=== PATIENT | male | born 1980 | race African-American/Black ===

== ENCOUNTER 2017-08-13 16:04 | Emergency (ER) | payer BC ==
--- NOTE | 2017-08-13 16:18 | ER Document Report ---
ED General Pain - General Chief Complaint: Low Back Pain Stated Complaint: BACK PAIN Time Seen by Provider: 08/13/17 16:18 Mode of Arrival: Ambulatory Information source: Patient Notes: Patient is a 37-year-old male who presents to the ER today for low back pain that started approximately a month ago when they were moving from one house to another. Patient states that he did have pain during the moving process but that he just ignored it, he has no history of any back problems. 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 Patient admits that the back pain has been intermittent over the past month, "probably worse because of my job." He denies any numbness or tingling, loss of bladder or bowel function. He does state that is starting to get more painful to strain trying to have a bowel movement. TRAVEL OUTSIDE OF THE [place] IN LAST 30 DAYS: No - Related Data Allergies/Adverse Reactions: No Known Allergies Allergy (Verified 08/13/17 16:05) Past Medical History - General Information source: Patient - Social History Smoking Status: Unknown if Ever Smoked Family History: Reviewed & Not Pertinent - Immunizations Hx Diphtheria, Pertussis, Tetanus Vaccination: Yes - unknown Review of Systems - Review of Systems Constitutional: No symptoms reported EENT: No symptoms reported Cardiovascular: No symptoms reported Respiratory: No symptoms reported Gastrointestinal: No symptoms reported Genitourinary: No symptoms reported Male Genitourinary: No symptoms reported Musculoskeletal: See HPI Skin: No symptoms reported Hematologic/Lymphatic: No symptoms reported Neurological/Psychological: No symptoms reported Physical Exam - Notes Notes: PHYSICAL EXAMINATION: GENERAL: Well-appearing and in no acute distress. HEAD: Atraumatic, normocephalic. EYES: Pupils equal round and reactive to light, extraocular movements intact, sclera anicteric, conjunctiva are normal. ENT: ear canals without erythema or foreign body, TMs pearly etienne with good bony landmarks, nares patent, oropharynx clear without exudates. Moist mucous membranes. NECK: Normal range of motion, supple without lymphadenopathy LUNGS: CTAB and equal. No wheezes rales or rhonchi. HEART: Regular rate and rhythm without murmurs ABDOMEN: Soft, no tenderness. No guarding, no rebound BACK: Mild lumbar vertebral tenderness, normal ROM GI/: no CVA tenderness EXTREMITIES: Normal range of motion, no pitting edema. No cyanosis. NEUROLOGICAL: Cranial nerves grossly intact. Normal sensory/motor exams. PSYCH: Normal mood, normal affect. SKIN: Warm, Dry, normal turgor, no rashes or lesions noted Course - Re-evaluation Re-evalutation: 08/13/17 20:34 Lumbar x-ray negative for any acute pathology. Discharge - Discharge Clinical Impression: Low back pain Qualifiers: Chronicity: acute Back pain laterality: midline Sciatica presence: without sciatica Qualified Code(s): M54.5 - Low back pain Condition: Stable Disposition: HOME, SELF-CARE Additional Instructions: Return immediately for any new or worsening symptoms. Follow up with primary care provider, call tomorrow to make followup appointment. Prescriptions: Cyclobenzaprine HCl [Flexeril 10 mg Tablet] 10 mg PO TIDP PRN #15 tab PRN Reason: Ibuprofen [Motrin 800 mg Tablet] 800 mg PO Q8H PRN #30 tab PRN Reason:
[2017-08-13] MEDS ORDERED: IBUPROFEN 800 MG TABLET PO ONE (16:23)
[2017-08-13] MEDS ORDERED: CYCLOBENZAPRINE HCL 10 MG TABLET PO ONE (16:23)
--- NOTE | 2017-08-13 17:15 | RADIOLOGY REPORT (SQ) ---
EXAM DESCRIPTION: L SPINE WHOLE COMPLETED DATE/TIME: 08/13/2017 4:40 pm REASON FOR STUDY: low back pain after moving/lifting,w/ straining COMPARISON: None. NUMBER OF VIEWS: Five views including obliques. TECHNIQUE: AP, lateral, oblique, and sacral radiographic images acquired of the lumbar spine. LIMITATIONS: None. FINDINGS: MINERALIZATION: Normal. SEGMENTATION: Normal. No transitional anatomy. ALIGNMENT: Normal. VERTEBRAE: Maintained height. No fracture or worrisome bone lesion. DISCS: Mild disc space loss of height at L5-S1. No significant osteophytes or end plate irregularity . POSTERIOR ELEMENTS: Pedicles and facets are intact. No pars defect or posterior arch defects. HARDWARE: None in the spine. PARASPINAL SOFT TISSUES: Normal. PELVIS: Intact as visualized. No fractures or worrisome bone lesions. SI joints intact. OTHER: No other significant finding. IMPRESSION: Mild disc space loss of height at L5-S1. Otherwise unremarkable study TECHNICAL DOCUMENTATION: JOB ID: [id number] [email or web address]- All Rights Reserved Reading location - IP/workstation name: [email or web address]
== END 2017-08-13 17:54 | disposition home or self-care (01) ==
LOC: ER 16:04
DX: M54.5 Low back pain (principal)
CPT/HCPCS: 72110; 99283

== ENCOUNTER → 2018-10-27 | Outpatient (CLI) | payer SELFPAY ==
[2018-10-27 15:57] LABS: ALANINE AMINOTRANSFERASE 31 U/L (21-72); ALBUMIN 4.3 g/dL (3.5-5.0); ALKALINE PHOSPHATASE 82 U/L (38-126); ANION GAP 8 (5-19); ASPARTATE AMINO TRANSFERASE 18 U/L (17-59); BILIRUBIN,DIRECT 0.2 mg/dL (0.0-0.4); BILIRUBIN,TOTAL 0.5 mg/dL (0.2-1.3); BLOOD UREA NITROGEN 15 mg/dL (7-20); CALCIUM 9.7 mg/dL (8.4-10.2); CARBON DIOXIDE 30 mmol/L (22-30); CHLORIDE 104 mmol/L (98-107); GLUCOSE 108 mg/dL (75-110); POTASSIUM 4.4 mmol/L (3.6-5.0); SODIUM 141.8 mmol/L (137-145); TOTAL PROTEIN 7.2 g/dL (6.3-8.2)
--- NOTE | 2018-10-27 20:44 | EKG REPORT ---
SEVERITY:- BORDERLINE ECG - SINUS RHYTHM BORDERLINE T ABNORMALITIES, DIFFUSE LEADS : Confirmed by: Yuko Mccormack MD 27-Oct-2018 20:43:35
== END ==
LOC: OD 14:56
PROVIDERS: ATTEND Nurse Practitioner Family
DX: I10 Essential (primary) hypertension (principal); R00.1 Bradycardia, unspecified
CPT/HCPCS: 36415; 80053; 84443; 93005; 93010

== ENCOUNTER 2020-02-29 17:33 | Emergency (ER) | payer SELFPAY ==
[2020-02-29] MEDS ORDERED: CLONIDINE HCL 0.2 MG TABLET PO ONE (20:38)
--- NOTE | 2020-02-29 20:44 | ER Document Report ---
ED General - General Chief Complaint: Nausea Stated Complaint: NAUSEA Time Seen by Provider: 02/29/20 18:45 Primary Care Provider: AGUILA OLIVO NP [Primary Care Provider] - Follow up as needed Mode of Arrival: Ambulatory Information source: Patient Notes: 39-year-old -[place] male with longstanding history of hypertension but no other medical problems coming in today with pain in his chest and pain in his bilateral lower extremities. This has been going on for quite some time. He does not have any associated shortness of breath. He does not have any trauma. 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 TRAVEL OUTSIDE OF THE [place] IN LAST 30 DAYS: No - Related Data Allergies/Adverse Reactions: No Known Allergies Allergy (Verified 08/13/17 16:05) Past Medical History - Social History Smoking Status: Never Smoker Frequency of alcohol use: Occasional Drug Abuse: None Family History: Reviewed & Not Pertinent - Past Medical History Cardiac Medical History: Reports: Hx Hypertension Renal/ Medical History: Denies: Hx Peritoneal Dialysis - Immunizations Hx Diphtheria, Pertussis, Tetanus Vaccination: Yes - unknown Review of Systems - Review of Systems Notes: Constitutional: No fevers. No chills. EENT: No eye redness. No eye pain. No ear pain. No sore throat. Cardiovascular: +chest pain. No palpitations. Respiratory: No cough. No shortness of breath. No respiratory distress. Gastrointestinal: No abdominal pain. No nausea, vomiting, or diarrhea. Genitourinary: Atraumatic. No lesions. No pain. No discharge. Musculoskeletal: Atraumatic. No swelling. No deformities. Positive for pain and swelling to bilateral lower extremities Skin: No rash or lesions. Lymphatic: No swollen lymph nodes. Neurologic: No headache. No syncope. Psychiatric: No suicidal or homicidal ideation. Physical Exam - Vital signs Vitals: Temp Pulse Resp BP Pulse Ox 98.2 F 99 16 192/121 H 100 02/29/20 17:59 02/29/20 17:59 02/29/20 17:59 02/29/20 17:59 02/29/20 17:59 - Notes Notes: General: Well-developed, well-nourished. In no acute distress. Non-toxic appearing. Cardiac: Well-perfused. Regular rate and rhythm. No murmurs, rubs, or gallops. Pulmonary: No respiratory distress. No cyanosis. Bilateral lung fiels are clear to auscultation. Abdominal: Non-distended. Non-rigid. Bowels sounds are present in all four quadrants. No guarding or rebound. HEENT: Head is atraumatic. Conjunctivae not reddened. No tearing. PERRL. EOMI. Orbits atraumatic. No periorbital swelling or erythema. Oropharynx is without erythema, swelling, or exudates. Neck: Supple. No adenopathy. No meningismus. Dermatologic: Warm with good turgor. No rash. Atraumatic. Chest: Atraumatic. No chest wall tenderness to palpation. Musculoskeletal: Moves all extremities well. No range of motion deficits. no muscular or joint tenderness. No paraspinal muscle tenderness. no midline spinal tenderness or step-off. Bilateral calf tenderness to palpation. Anterior chest wall is tender to palpate. No rib crepitus. Genitourinary: Examination deferred Neurologic: No gross neurologic deficits. Psychiatric: Normal mood. Course - Re-evaluation Re-evalutation: 02/29/20 20:43 Patient has rather elevated blood pressure. He has been told that he has high blood pressure but still does not take any medicine for it. Given his chest pain, which does seem to be musculoskeletal, will do basic cardiac work-up. Also given the pain in his legs and swelling and no previous injury, will get a venous Doppler. 02/29/20 23:55 Patient came in with pain in the muscles of his legs and his chest. He has longstanding untreated hypertension. He was worked up from a cardiac perspecti ve. His work-up is negative. He does have a CPK of almost 900. Suspect this could be some mild rhabdomyolysis explaining the pain in his legs. He got 2 L of normal saline and he is down to about 700. He is able to drink fluid on his own. I feel comfortable discharging him home with close follow-up with Dr. Davis. He is encouraged to really drink copious amounts of water to flush his kidneys out. Start him on lisinopril for his unusually elevated blood pressure. He is encouraged to follow-up both for his blood pressure and his rhabdomyolysis. - Vital Signs Vital signs: Temp Pulse Resp BP Pulse Ox 98.2 F 99 16 188/120 H 100 02/29/20 17:59 02/29/20 17:59 02/29/20 17:59 02/29/20 19:35 02/29/20 17:59 - Laboratory Result Diagrams: 02/29/20 18:45 02/29/20 18:45 Laboratory results interpreted by me: 02/29/20 02/29/20 02/29/20 18:45 18:45 23:28 RBC 5.60 H RDW 14.5 H Creatinine 1.43 H Est GFR (MDRD) Non-Af 55 L Direct Bilirubin 0.5 H Alkaline Phosphatase 132 H Creatine Kinase 905 H 698 H Total Protein 8.4 H Discharge - Discharge Clinical Impression: Elevated blood pressure reading Rhabdomyolysis Qualifiers: Rhabdomyolysis type: non-traumatic Qualified Code(s): M62.82 - Rhabdomyolysis Condition: Good Disposition: HOME, SELF-CARE Instructions: Myalagia (Muscle Pain) ([facility]) Additional Instructions: You need to drink copious amounts of water to flush your kidneys out. We have started the process for you through with the IV fluids but she can continue the process by drinking water. You have been given the name of a physician to follow-up with to make sure that your blood work is improving. You have been given a prescription for lisinopril which is a free prescription at [facility] pharmacy which will help start managing your blood pressure. You can [facility] to follow with [facility] and they can manage your blood pressure issues. Dr. Davis's information is also available as a follow-up option. Prescriptions: Lisinopril [Prinivil] 20 mg PO DAILY #30 tablet Forms: Elevated Blood Pressure Referrals: SULEIMAN DAVIS DO [NO LOCAL MD] - Follow up tomorrow
--- NOTE | 2020-02-29 21:24 | RADIOLOGY REPORT (SQ) ---
EXAM DESCRIPTION: XR CHEST 1 VIEW COMPLETED DATE/TME: 02/29/2020 20:34 CLINICAL HISTORY: 39 years, Male, cp COMPARISON: None. NUMBER OF VIEWS: TECHNIQUE: LIMITATIONS: None. FINDINGS: No evidence of pulmonary infiltrate or pleural effusion. The heart and mediastinum are unremarkable. Pulmonary vascularity appears normal. IMPRESSION: No acute finding. copyright 2010 [employer]- All Rights Reserved
[2020-02-29 21:56] LABS: ABSOLUTE BASOPHILS # (AUTO) 0.1 10^3/uL (0.0-0.2); ABSOLUTE LYMPHOCYTES (AUTO) 1.4 10^3/uL (0.5-4.7); ABSOLUTE MONOCYTES (AUTO) 0.6 10^3/uL (0.1-1.4); ABSOLUTE NEUT (AUTO) 3.4 10^3/uL (1.7-8.2); BASOPHILS % (AUTO) 0.9 % (0-2); EOSINOPHILS % (AUTO) 0.3 % (0-6); HEMATOCRIT 47.3 % (37.9-51.0); HEMOGLOBIN 15.6 g/dL (13.5-17.0); LYMPHOCYTES % (AUTO) 26.1 % (13-45); MEAN CORPUSCULAR HEMOGLOBIN 27.9 pg (27.0-33.4); MEAN CORPUSCULAR VOLUME 84 fl (80-97); MONOCYTES % (AUTO) 11.2 % (3-13); PLATELET COUNT 291 10^3/uL (150-450); RED CELL DISTRIBUTION WIDTH 14.5 % (11.5-14.0); SEGMENTED NEUTROPHILS % (AUTO) 61.5 % (42-78); TOTAL CELLS COUNTED % (AUTO) 100 %; WHITE BLOOD COUNT 5.5 10^3/uL (4.0-10.5)
[2020-02-29 22:10] LABS: ALKALINE PHOSPHATASE 132 U/L (38-126); ANION GAP 12 (5-19); ASPARTATE AMINO TRANSFERASE 54 U/L (17-59); BILIRUBIN,DIRECT 0.5 mg/dL (0.0-0.4); BILIRUBIN,TOTAL 0.9 mg/dL (0.2-1.3); BLOOD UREA NITROGEN 16 mg/dL (7-20); CALCIUM 10.1 mg/dL (8.4-10.2); CARBON DIOXIDE 28 mmol/L (22-30); CHLORIDE 98 mmol/L (98-107); CREATINE KINASE 905 U/L (55-170); GLUCOSE 96 mg/dL (75-110); POTASSIUM 4.1 mmol/L (3.6-5.0); TOTAL PROTEIN 8.4 g/dL (6.3-8.2)
--- NOTE | 2020-02-29 22:27 | RADIOLOGY REPORT (SQ) ---
INDICATION: atraumatic pain and swelling lower legs. PROCEDURE: Real-time grayscale, color, and pulse Doppler ultrasound imaging of the bilateral lower extremity deep venous system was performed. 74 images. COMPARISON: None FINDINGS: The common femoral, superficial femoral, and popliteal veins demonstrate normal compressibility, phasic flow, augmentation and ryan scale evaluation. There is no evidence of intraluminal thrombus . The visualized deep calf veins appear patent. IMPRESSION: No evidence for acute deep venous thrombus from the common femoral to the popliteal veins.
[2020-02-29] MEDS: NORMAL SALINE 1000 ML 1,000 ML IV PRN ×2 (22:43→22:44)
[2020-03-01 00:04] VITALS: BP 149/96
--- NOTE | 2020-03-01 18:01 | EKG REPORT ---
SEVERITY:- ABNORMAL ECG - SINUS RHYTHM NONSPECIFIC T ABNORMALITIES, INFERIOR LEADS : Confirmed by: Mak Lepe MD 01-Mar-2020 17:59:48
== END 2020-03-01 00:04 | disposition home or self-care (01) ==
LOC: ER 17:33
DX: M62.82 Rhabdomyolysis (principal); R07.89 Other chest pain; M79.89 Other specified soft tissue disorders; I10 Essential (primary) hypertension
CPT/HCPCS: 93005; 99285; 96360; 36415; 82550; 85025; 80053; 84484; 93970; 71045; 93010; J7030